=== PATIENT | male | born 1945 | race Caucasian/White ===

== ENCOUNTER 2016-06-09 13:01 | Emergency (ER) | payer MEDICARE, OTHER ==
--- NOTE | 2016-06-09 13:27 | ER Document Report ---
ED Medical Screen (RME) - General Stated Complaint: WEAKNESS Notes: 70 [place] [facility] for [place], decreased appetite, difficulty walking and confusion x 1 month. pt denies pain presently. presently on antibiotic for cellulitis of right leg. hospitalized [facility] for pancreatitis. says patient is getting weaker, she is having more difficulty caring for him. "more than I can handle" Physical Exam - Vital signs Vitals: Temp Pulse Resp BP Pulse Ox 97.5 F 64 16 119/91 H 93 06/09/16 13:07 06/09/16 13:07 06/09/16 13:07 06/09/16 13:07 06/09/16 13:07 Course - Vital Signs Vital signs: Temp Pulse Resp BP Pulse Ox 97.5 F 64 16 119/91 H 93 06/09/16 13:07 06/09/16 13:07 06/09/16 13:07 06/09/16 13:07 06/09/16 13:07
[2016-06-09 14:03] LABS: ABSOLUTE EOSINOPHILS # (AUTO) 0.8 10^3/uL (0.0-0.6); ABSOLUTE LYMPHOCYTES (AUTO) 1.9 10^3/uL (0.5-4.7); ABSOLUTE MONOCYTES (AUTO) 0.5 10^3/uL (0.1-1.4); ABSOLUTE NEUT (AUTO) 5.4 10^3/uL (1.7-8.2); BASOPHILS % (AUTO) 0.3 % (0-2); EOSINOPHILS % (AUTO) 9.1 % (0-6); HEMATOCRIT 44.4 % (37.9-51.0); HEMOGLOBIN 14.9 g/dL (13.5-17.0); HGB HCT DIFFERENCE 0.3; LYMPHOCYTES % (AUTO) 22.1 % (13-45); MEAN CORPUSCULAR HEMOGLOBIN 29.1 pg (27.0-33.4); MEAN CORPUSCULAR HGB CONC 33.5 g/dL (32.0-36.0); MEAN CORPUSCULAR VOLUME 87 fl (80-97); MONOCYTES % (AUTO) 5.7 % (3-13); RED BLOOD COUNT 5.11 10^6/uL (4.35-5.55); RED CELL DISTRIBUTION WIDTH 14.2 % (11.5-14.0); SEGMENTED NEUTROPHILS % (AUTO) 62.8 % (42-78); WHITE BLOOD COUNT 8.6 10^3/uL (4.0-10.5)
[2016-06-09 14:29] LABS: ALANINE AMINOTRANSFERASE 44 U/L (21-72); ALKALINE PHOSPHATASE 69 U/L (38-126); ANION GAP 9 (5-19); ASPARTATE AMINO TRANSFERASE 28 U/L (17-59); BILIRUBIN,TOTAL 0.6 mg/dL (0.2-1.3); BLOOD UREA NITROGEN 18 mg/dL (7-20); CALCIUM 9.4 mg/dL (8.4-10.2); CARBON DIOXIDE 31 mmol/L (22-30); CHLORIDE 98 mmol/L (98-107); CREATININE RESULT 0.94 mg/dL (0.52-1.25); GLUCOSE 110 mg/dL (75-110); LIPASE 343.4 U/L (23-300); SODIUM 137.9 mmol/L (137-145)
[2016-06-09] MEDS ORDERED: NORMAL SALINE 1000 ML 1,000 ML IV ONE ×2 (14:48→15:47)
--- NOTE | 2016-06-09 14:48 | ER Document Report ---
ED Dizziness/Weakness - General Chief Complaint: General Weakness Stated Complaint: WEAKNESS Notes: The patient is a 70-year-old male, past medical history hypertension, dementia, right rotator cuff repair, presents with 1 month of increasing confusion, cough and generalized weakness. He was admitted to [facility] one month ago for his pancreatitis and increased confusion and had a full workup, including CT and MRI of the head. Over the past few days, the and sister are having increased difficulty taking care of him at home. He has home nursing and physical therapy and they were only able to perform physical therapy from his chair today. He saw his primary care doctor [facility] and was sent to the emergency room for further evaluation. Patient is confused and only says that he has a dull frontal headache and cough, which she has had for the past 2 months. Patient is also complaining of right shoulder pain after he fell on it a few days ago. TRAVEL OUTSIDE OF THE [place] IN LAST 30 DAYS: No - Related Data Allergies/Adverse Reactions: midazolam [From Versed] Allergy (Verified 06/09/16 13:29) haloperidol [From Haldol] Adverse Reaction (Verified 06/09/16 13:29) hydromorphone [From Dilaudid] Adverse Reaction (Verified 06/09/16 13:29) Past Medical History - General Information source: Relative - Social History Smoking Status: Former Smoker Chew tobacco use (# tins/day): No Family History: Reviewed & Not Pertinent Patient has suicidal ideation: No Patient has homicidal ideation: No Renal/ Medical History: Denies: Hx Peritoneal Dialysis Review of Systems - Review of Systems -: Yes ROS unobtainable due to patient's medical condition Physical Exam - Vital signs Vitals: Temp Pulse Resp BP Pulse Ox 97.5 F 64 16 119/91 H 93 06/09/16 13:07 06/09/16 13:07 06/09/16 13:07 06/09/16 13:07 06/09/16 13:07 - Notes Notes: PHYSICAL EXAMINATION: GENERAL: Elderly-appearing. No acute distress. HEAD: Atraumatic, normocephalic. EYES: Pupils equal round and reactive to light, extraocular movements intact, sclera anicteric, conjunctiva are normal. ENT: nares patent, oropharynx clear without exudates. Moist mucous membranes. NECK: Normal range of motion, supple without lymphadenopathy LUNGS: Dull sounds on the right side. Mild tachypnea. No respiratory distress. HEART: Regular rate and rhythm without murmurs ABDOMEN: Soft, nontender, normoactive bowel sounds. No guarding, no rebound. No masses appreciated. EXTREMITIES: Tenderness over right lateral shoulder, Normal range of motion, no pitting or edema. No cyanosis. NEUROLOGICAL: AAOx1. 4/5 strength in all 4 extremities. No sensory changes. SKIN: Warm, Dry, normal turgor, no rashes or lesions noted. Course - Re-evaluation Re-evalutation: Patient with increased confusion despite multiple workups at [facility]. No acute abnormalities seen in today's workup. He does have a 4.4 cm thoracic aneurysm. Discussed with family about treatment options and they declined transfer for CT surgery evaluation at this time. Patient has a hospice bed tomorrow, but family does not feel safe taking patient home today. Will keep patient in the emergency room tonight until he can be transferred to hospice bed tomorrow. Will restart his home antipsychotic medications and keep him comfortable with morphine. 06/10/16 15:17 Ronaldo, ED psychiatric social worker, attempted multiple times to place patient in hospice bed as he was promised yesterday. Spoke to family and they think that by going to the [facility], with his [facility] and [facility], he will have a more successful time being placed in a hospice bed. The family will take the patient home and follow-up. Ronaldo will continue to keep in touch with the family to help arrange services for the patient. - Vital Signs Vital signs: Temp Pulse Resp BP Pulse Ox 97.8 F 103 H 20 157/103 H 95 06/10/16 15:13 06/10/16 15:13 06/10/16 15:13 06/10/16 15:13 06/10/16 15:13 - Laboratory Result Diagrams: 06/09/16 13:35 06/09/16 13:35 Laboratory results interpreted by me: 06/09/16 06/09/16 13:35 13:35 RDW 14.2 H Eosinophils % 9.1 H Absolute Eosinophils 0.8 H Carbon Dioxide 31 H Lipase 343.4 H - Diagnostic Test Radiology reviewed: Image reviewed, Reports reviewed Radiology results interpreted by me: CT Chest: IMPRESSION: 1. NO ACUTE INTRATHORACIC PROCESS IDENTIFIED. 2. 4.4 CM ASCENDING THORACIC AORTIC ANEURYSM. 3. POST PNEUMONECTOMY CHANGE ON THE RIGHT ABOVE. Discharge - Discharge Clinical Impression: Generalized weakness Dementia Qualifiers: Dementia type: unspecified type Dementia behavioral disturbance: with behavioral disturbance Qualified Code(s): F03.91 - Unspecified dementia with behavioral disturbance Condition: Stable Disposition: HOSPICE CENTER Additional Instructions: Weakness We did not find a definite cause for your weakness. This may require further medical tests. Weakness can be caused by infection, physical exhaustion , rapid weight loss, dehydration, or medicine side effects. Diseases of the muscles, heart, nerves, and blood vessels can make you weak. Sometimes the problem is simply depression or lack of exercise. You should get plenty of rest. Unless the doctor tells you otherwise, it's usually best to add short periods of regular mild exercise. Eat a nutritious diet with multiple small, low-sugar meals. If symptoms continue, additional medical evaluation will be necessary. Be sure to follow up as instructed. If you become very dizzy, nauseated, or feel like you're going to faint, lie down right away. Wait until the symptoms have passed before you get up again. Stand up slowly. Call the doctor or return if you develop chest pain, abdominal pain, severe headache, irregular heartbeat or very fast pulse, confusion, vision problems, fever, muscular pain, or any other new symptom. Referrals: DANIEL BUNDY MD [Primary Care Provider] - Follow up as needed
[2016-06-09] MEDS ORDERED: VANCOMYCIN HCL INJ 1000 MG VIAL IV ONE (15:47)
[2016-06-09] MEDS ORDERED: PIPERACILLIN/TAZOBACTAM 3.375 GM VIAL IV ONE (15:47)
[2016-06-09] MEDS ORDERED: KETOROLAC TROMETHAMINE INJ/PF 30 MG/1 ML SDV IV ONE (15:47)
[2016-06-09 15:52] LABS: APPEARANCE,URINE CLEAR; BILIRUBIN,URINE NEGATIVE (NEGATIVE); GLUCOSE, URINE NEGATIVE (NEGATIVE); KETONES,URINE NEGATIVE (NEGATIVE); LEUKOCYTE ESTERASE,URINE NEGATIVE (NEGATIVE); NITRITE,URINE NEGATIVE (NEGATIVE); PROTEIN,URINE NEGATIVE (NEGATIVE); URINE SPECIFIC GRAVITY 1.014; UROBILINOGEN,URINE NEGATIVE mg/dL (<2.0)
[2016-06-09] MEDS ORDERED: MORPHINE SULFATE 10 MG/ML INJ IV ONE (17:46)
[2016-06-09] MEDS ORDERED: DONEPEZIL HCL 5 MG TABLET PO ONE (17:47)
[2016-06-09] MEDS ORDERED: CLONAZEPAM 1 MG TABLET PO ONE (17:47)
[2016-06-09] MEDS: MORPHINE SULFATE 10 MG/ML INJ IV PRN (20:18)
[2016-06-09] MEDS ORDERED: DIAZEPAM INJ 10 MG/2 ML DISP.SYRIN IV ONE (22:39)
[2016-06-10] MEDS: MORPHINE SULFATE 10 MG/ML INJ IV PRN ×3 (00:21→06:53)
[2016-06-10] MEDS ORDERED: OLANZAPINE 5 MG TAB.RAPDIS PO ONE (01:27)
[2016-06-10] MEDS ORDERED: CLONAZEPAM 1 MG TABLET PO SCH (08:00)
[2016-06-10 15:37] VITALS: BP 157/103
== END 2016-06-10 15:13 | disposition hospice, inpatient (51) ==
LOC: ER 13:01
DX: R53.1 Weakness (principal); F03.90 Unspecified dementia, unspecified severity, without behavioral disturbance, psychotic disturbance, mood disturbance, and anxiety; R05 Cough; R51 Headache; M25.511 Pain in right shoulder; W19.XXXA Unspecified fall, initial encounter; I71.2 Thoracic aortic aneurysm, without rupture; R06.82 Tachypnea, not elsewhere classified; I10 Essential (primary) hypertension; Z98.890 Other specified postprocedural states; Z87.19 Personal history of other diseases of the digestive system; Z88.4 Allergy status to anesthetic agent; Z87.891 Personal history of nicotine dependence; Z90.2 Acquired absence of lung [part of]
CPT/HCPCS: 96376; 99285; 96375; 96365; 36415; 83690; 85025; 80053; 81001; 71010; 71250; A9270 ×4; J3360; J1885; J2270 ×2; J7030; J2543; J3490